=== PATIENT | female | born 1960 | race Caucasian/White ===

== ENCOUNTER 2020-03-12 09:23 | Outpatient (CLI) | payer OTHER, SELFPAY ==
--- NOTE | ~2020-03-12 | MM_ITS ---
EXAMINATION: MM screening mammo BI HISTORY: Screening mammogram TECHNIQUE: Craniocaudal and mediolateral oblique 3-D tomosynthesis images were obtained and synthetic 2-D images were generated. CAD analysis was submitted and interpreted. COMPARISON: 01/24/2019, 03/16/2015 bilateral digital screening mammogram examinations BREAST PARENCHYMAL COMPOSITION: There are scattered areas of fibroglandular density. FINDINGS: There is no evidence of suspicious mass, calcification, or architectural distortion to sugg est malignancy in either breast. There has been no suspicious interval change. IMPRESSION: 1. No mammographic evidence of malignancy. 2. Recommend routine screening mammography in one year. BI-RADS Category 1: Negative Reviewed, dictated and finalized at location A.
== END 2020-03-12 09:24 | disposition home or self-care (01) ==
PROVIDERS: PCP Internal Medicine; Visit Provider Student in an Organized Health Care Education/Training Program
DX: Z12.31 Encounter for screening mammogram for malignant neoplasm of breast (principal)
CPT/HCPCS: 77067

== ENCOUNTER → 2022-11-08 10:52 | Outpatient (CLI) | payer BC, SELFPAY ==
--- NOTE | ~2022-11-08 | DEXA_ITS ---
Bone Density Report Name: YULY GLASS Age: 61 Sex: Female Ethnicity: White Date of : 1960 Indication: postmenopausal; screening for osteoporosis; parental hip fracture; hysterectomy; Referring Provider: Hillary Nino Study: Bone densitometry was performed. Exam Date: November 08, 2022 Accession number: [id number] Bone Density: Region BMD T-score Z-score Classification AP Spine (L1-L4) 0.978 -0.6 0.9 Normal Femoral Neck (Left) 0.807 -0.4 1.0 Normal Total Hip (Left) 0.949 0.1 1.1 Normal Femoral Neck (Right) 0.845 0.0 1.3 Normal Total Hip (Right) 0.998 0.5 1.5 Normal Total Hip Mean 0.974 0.3 1.3 Normal World Health Organization criteria for BMD impression classify patients as: Normal (T-score at or above -1.0), Osteopenia (T-score between -1.0 and -2.5), or Osteoporosis (T-score at or below -2.5). 10-year Fracture Risk: FRAX not reported because: All T-scores for Spine Total, Hip Total, Femoral Neck at or above -1.0 Clinical Information Provided by Patient: Parent has had a hip fracture Has used the following medications: Calcium Has the following medical conditions: Hysterectomy Patient maximum height was 64.2 Menopause Age: 40 Drinks caffeinated beverages Onset of menses at age 10 Number of children 2 Impression: The patient has normal bone mass. The patient has risk factors, including: parental hip fracture. Discussion: BONE DENSITY IS ABOVE THE MINIMUM DESIRABLE LEVEL AT ALL SKELETAL SITES TESTED. This patient?s bone mineral density is above the minimum desirable level (T-score -1.0 or better) at all sites measured. The patient should follow a healthful lifestyle (good nutrition with adequate calcium and vitamin D, and appropriate weight-bearing exercise). Follow-Up: Consider repeating this study in 5 years or sooner if there is some new clinical indication. Reported by: [facility] on 11/08/2022 11:24:00 AM. Reviewed, dictated and finalized at location ACristian MIKE
--- NOTE | ~2022-11-08 | MM_ITS ---
EXAMINATION: MM screening [facility] BI w juanita HISTORY: Screening mammogram TECHNIQUE: Craniocaudal and mediolateral oblique 3-D tomosynthesis images were obtained and synthetic 2-D images were generated. CAD analysis was submitted and interpreted. COMPARISON: 03/12/2020, 01/24/2019, 03/16/2015 BREAST PARENCHYMAL COMPOSITION: There are scattered areas of fibroglandular density. FINDINGS: No suspicious mass, calcification, or architectural distortion are identified in either corey ast to suggest malignancy. There has been no suspicious interval change. IMPRESSION: 1. No mammographic evidence of malignancy. 2. Recommend routine screening mammography in one year. BI-RADS Category 1: Negative Reviewed, dictated and finalized at location A.
== END ==
PROVIDERS: PCP Family Medicine; Visit Provider Family Medicine
DX: Z12.31 Encounter for screening mammogram for malignant neoplasm of breast (principal); Z78.0 Asymptomatic menopausal state
CPT/HCPCS: 77063; 77067; 77080

== ENCOUNTER → 2022-12-16 09:54 | Outpatient (CLI) | payer BC, SELFPAY ==
--- NOTE | ~2022-12-16 | XR_ITS ---
Right Knee Technique: AP, lateral, and sunrise views were obtained. Clinical History: Pain Findings: No fracture or dislocation is seen. Osseous alignment is anatomic. There is mild patellar s purring. Soft tissues are unremarkable. No joint effusion is seen. Impression: Mild patellar spurring. Reviewed, dictated and finalized at location . Impression: Mild patellar spurring.
== END ==
PROVIDERS: PCP Family Medicine; Visit Provider Family Medicine
DX: M76.51 Patellar tendinitis, right knee (principal)
CPT/HCPCS: 73564

== ENCOUNTER 2023-11-07 08:44 | Outpatient (CLI) | payer BC, SELFPAY ==
[2023-11-13 14:34] VITALS: BMI 26.2
--- NOTE | 2023-11-13 14:34 | WPDHOMESLEEP ---
Sleep Study - Home Unattended Date of Study: 11/07/23 Ordering Provider: Ashly Crane DO Interpreting Provider: Ashly Crane DO Home Sleep Study Type: Watch PAT Height: 1.64 m Weight: 70.307 kg Body Mass Index: 26.2 Neck Circumference (inches): 12 [place]: 0 Reason for Sleep Study Insomnia Sleep History The patient is a 62-year-old female that had a sleep study ordered for evaluation of insomnia. The patient denies awakening from sleep short of breath. She denies awakening at night with heartburn, belching or cough. She frequently snores and is frequently loud enough that others complain. She denies waking up gasping for air throughout the night. She denies having breathing problems at night observed by herself or others. She denies sweating excessively at night. She denies having heart palpitations or irregular heartbeats during the night. She denies falling asleep during the day and while driving. He denies sleep paralysis and cataplexy. She occasionally has trouble at school or work due to sleepiness. She frequently experiences vivid dreamlike scenes upon awakening or falling asleep. She denies feeling afraid of going to sleep. She rarely has nightmares. She frequently remembers her dreams. She frequently has thoughts racing through her mind. She rarely feels sad or depressed. She frequently has anxiety. She occasionally notices parts of her body jerk. She rarely kicks during the night. She occasionally experiences crawling and aching feelings in her legs and occasionally has leg pain during the night. She occasionally grinds her teeth during sleep but never awakened with morning jaw pain. She denies being bothered by pain during the day and denies being awakened by pain during the night. She denies waking up feeling stiff in the morning. She denies waking with sore or achy muscles. She denies waking up with pain in the neck, spine and other joints. She goes to bed between 9:30-10 p.m. on weekdays and at 10:00 p.m. on the weekends. It takes her 30 minutes to fall asleep. She wakes up once throughout the night for unknown reasons. When she is unable to fall asleep, she will try to calm her brain and listen to various voices. it can take her 2 to 2-1/2 hours to fall back asleep. She wakes up at 5:30 a.m. on weekdays and 6:30 a.m. on the weekends. She typically gets 7-1/2 hours of sleep per night. She will stay in bed for 10-15 minutes after waking up in the morning. He currently lives with her . She denies consuming any caffeinated beverages within 2 hours of bedtime. She denies engaging in physical exercise before bedtime. She will occasionally read and watch television before falling asleep. She denies taking naps in the afternoon evening. She consumes 2-3 cups of caffeinated beverage per day. She consumes 1-2 alcoholic beverages per month. She denies tobacco and recreational drug use. [facility] Past Medical History Medical History Body mass index (bmi) 32.0-32.9, adult (01/08/19) Hypercholesterolemia Insomnia due to stress Post menopausal problems Surgical History Surgical History H/O: hysterectomy Hx of tonsillectomy Family History Family History Sibling Family history of obesity Family history of mental disorder Depression Family history of type 2 diabetes mellitus Father Hypertension Family history of type 2 diabetes mellitus Mother Patient's mother is in good health Social History Social History Smoking status: Never smoker Second hand tobacco smoke exposure: No Alcohol intake: current Substance use: never Substance use type: does not use Do You Feel Safe in your Home?: Yes Lack of Transportation: No Lack of Food: Never True
== END 2023-11-09 11:57 | disposition home or self-care (01) ==
LOC: ANHCSM 08:45
PROVIDERS: PCP Family Medicine; Visit Provider Family Medicine
DX: G47.00 Insomnia, unspecified (principal); F51.02 Adjustment insomnia; F39 Unspecified mood [affective] disorder
CPT/HCPCS: 95800

== ENCOUNTER 2024-02-16 15:29 | Outpatient (CLI) | payer BC, SELFPAY ==
--- NOTE | ~2024-02-16 | XR_ITS ---
XR knee RT min 4V 02/16/2024 15:48 Indication: Right knee pain Procedure: 4 views right knee Comparison: 12/16/2022 Findings: Mild osteoarthritis of the right knee. No fracture, subluxation or dislocation. No signific ant joint effusion. Impression: 1: Mild osteoarthritis of the right knee. Reviewed, dictated and finalized at location B. Impression: 1: Mild osteoarthritis of the right knee.
== END 2024-02-16 15:30 ==
LOC: GOSHIMG 15:30
PROVIDERS: PCP Family Medicine; Visit Provider Family Medicine
DX: M17.11 Unilateral primary osteoarthritis, right knee (principal)
CPT/HCPCS: 73564

== ENCOUNTER 2024-04-09 07:19 | Outpatient (CLI) | payer BC, SELFPAY ==
--- NOTE | ~2024-04-09 | MR_ITS ---
EXAMINATION: MR knee RT wo con DATE: 04/09/2024 07:58 INDICATION: Right knee pain TECHNIQUE: Magnetic resonance imaging (MRI) of the right knee was performed without intravenous contr ast. Sequences included coronal PD-weighted FSE, coronal PD-weighted FS FSE, sagittal T2-weighted FS E, sagittal PD-weighted FS FSE and axial PD weighted fat saturated FSE. COMPARISON: None. FINDINGS: Medial compartment: Medial meniscus is normal. Shallow chondral ulceration with mild partial-thickness cartilage loss and chondral surface regularity along the anterior to central weightbearing medial femoral condyle and a nterior third of the medial tibial plateau. Lateral compartment: Lateral meniscus is normal. Chondral thickness is relatively preserved with deep chondral fissure at the central aspect of the lateral tibial plateau. There is a 5 x 9 mm deep chondral defect at the zohreh ction of the anterior to central weightbearing lateral femoral condyle. No degenerative subchondral c hanges. Patellofemoral compartment: Deep chondral ulceration and fissuring at the patellar apical ridge and immediately adjacent medial a nd lateral patellar facets. Less severe partial thickness cartilage loss with deep fissuring extendin g more peripherally across the lateral patellar facet. There are associated scattered subarticular ed [place]-like signal changes. Deep chondral fissure with small central subchondral osteophyte at the cepha lad aspect of the trochlear groove. And at the inferolateral aspect of the medial trochlea where ther e is also some mild subarticular edema-like signal change. Severe partial thickness chondral fissurin g at the inferolateral aspect of the lateral trochlea. Ligaments and tendons: Anterior and posterior cruciate ligaments are normal. The medial collateral ligament and fibular amber ateral ligament complex are normal. The extensor mechanism is normal. The visualized medial and later al hamstring tendons as well as the iliotibial band are normal. Fluid: Small knee joint effusion. Multilobulated ganglion cyst with numerous small loculations together dinesh uring 2.5 x 1.1 x 1.5 cm which extends into some of the fibers at the femoral origin of the lateral h ead of the gastrocnemius. There is a small loose body within a small ganglion cyst within the fibers of the femoral origin of the medial head of the gastrocnemius. No intra-articular loose osteochondral bodies identified. Osseous/other: Bone marrow signal is normal aside from previous noted scattered degenerative subarticular edema-like signal changes. No fracture or pathologic marrow replacing process. IMPRESSION: 1. 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 Reviewed, dictated and finalized at location A. IMPRESSION: 1. 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
== END 2024-04-09 07:20 | disposition home or self-care (01) ==
PROVIDERS: PCP Family Medicine; Visit Provider Family Medicine
DX: M17.11 Unilateral primary osteoarthritis, right knee (principal); M22.41 Chondromalacia patellae, right knee
CPT/HCPCS: 73721

== ENCOUNTER 2025-04-18 10:43 | Outpatient (NON) | payer OTHER, SELFPAY ==
--- OUTSIDE RECORDS SUMMARY | 2025-04-18 11:03 | XMS_ITS | Clinical Summary ---
Author Organization [facility] Address [address] [place] [address] Care Team Providers Care Assembler Tractor Name Role Phone Daniel Erickson MD Primary Care Provider [phone] Allergies Active Allergy Reactions Criticality Noted Date Comments Meperidine Nausea only Low 02/10/2009 Medications clonazePAM (KlonoPIN) 0.5 mg tablet every 8 hours Active traZODone (DESYREL) 100 mg tablet trazodone 100 mg tablet Active Active Problems Problem Noted Date Diagnosed Date Anxiety 07/22/2019 Disorder of bursae of shoulder region 07/22/2019 Mucous cyst of finger 07/22/2019 Overview (07/22/2019): Added automatically from request for surgery [id number] Mastitis 02/10/2009 Overview (07/22/2019): Late December 2008, erythema right breast, periareolar, associated with malaise, resolved with Keflex. Surgical History Surgery Date Site/Laterality Comments HYSTERECTOMY Family History Medical History Relation Name Comments Diabetes Father Heart disease Father Hypertension Father Arthritis Mother Relation Name Status Comments Father Mother Social History Tobacco Use Types Packs/Day Years Used Date Smoking Tobacco: Never Smokeless Tobacco: Never Personal Safety Answer Date Recorded Getting School Help Needed Not on file 09/09 Comments Unknown Sex and Gender Information Value Date Recorded Sex Assigned at Not on file Legal Sex Female 5:00 PM RECORDS CLERK Gender Identity Not on file Sexual Orientation Not on file Obstetrics History Last Filed Vital Signs Vital Sign Reading Time Taken Comments Blood Pressure - - Pulse - - Temperature - - Respiratory Rate - - Oxygen Saturation - - Inhaled Oxygen Concentration - - Weight 70.3 kg (155 lb) 07/22/2019 8:56 AM RECORDS CLERK Height 162.6 cm (5' 4) 07/22/2019 8:56 AM RECORDS CLERK Body Mass Index 26.61 07/22/2019 8:56 AM RECORDS CLERK Plan of Treatment Not on file Insurance [facility] CHOICE [facility] H[facility]/PPO Address: [place] [id number] Care Teams Assembler Tractor Relationship Specialty Start Date End Date Daniel Erickson MD [address] [place] [id number] PCP - General Internal Medicine 07/22/19
[2025-04-18 13:17] LABS: Add Urine Microscopic? YES; Appearance Urine Clear (Clear); Glucose Urine UA Negative (Negative); Leukocyte Esterase Ur 2+ LEU/UL (Negative); Need Manual Microscopic Reviewed; Nitrate Urine Negative (Negative); Non Pathogenic Casts 0-2; Specific Grav Ur 1.007 (1.001-1.035)
== END 2025-04-18 10:44 | disposition home or self-care (01) ==
LOC: ANHGOSHLAB 10:43
PROVIDERS: PCP Family Medicine; Visit Provider Nurse Practitioner Family
DX: R82.90 Unspecified abnormal findings in urine (principal)
CPT/HCPCS: 81001; 87086

== ENCOUNTER 2025-05-08 01:13 | Day surgery (SDC) | payer OTHER, SELFPAY ==
[2025-04-30 14:25] VITALS: BMI 29.3
--- OUTSIDE RECORDS SUMMARY | 2025-05-08 01:16 | XMS_ITS | Clinical Summary ---
Author Organization [facility] Address [address] [place] [address] Phone Care Team Providers Care Metal Mockup Maker Name Role Phone Daniel Erickson MD Primary Care Provider Allergies Active Allergy Reactions Criticality Noted Date Comments Meperidine Unknown 02/10/2009 Medications ESCITALOPRAM OXALATE (LEXAPRO PO) Take by mouth. Ac tive estradioL (Yuvafem) 10 mcg tablet Insert one tablet vaginally every evening for 14 days, then insert one tablet twice weekly. 28 Tablet 2 Active traZODone (DESYREL) 100 mg tablet Take 1 Tablet (100 mg) by mouth 2 times daily. 180 Tablet 1 08/01/2022 6:19 PM SCHOLARSHIP COUNSELOR 2 Active clonazePAM (KlonoPIN) 0.5 mg Tablet Take 1 Tablet (0.5 mg) by mouth daily. 30 Tablet 08/30/2022 12:07 PM SCHOLARSHIP COUNSELOR 3 Active clonazePAM (KlonoPIN) 0.5 mg Tablet Take 1 Tablet (0.5 mg) by mouth 1 time daily as needed for insomnia. 30 Tablet 2 3 Active clonazePAM (KlonoPIN) 0.5 mg Tablet Take 1 Tablet (0.5 mg) by mouth 1 time daily as needed for insomnia. 30 Tablet 2 12/02/2022 6:10 PM CDT 3 Active clonazePAM (KlonoPIN) 0.5 mg Tablet TAKE 1 TABLET BY MOUTH DAILY NEEDED FOR INSOMNIA 30 Tablet 2 04/01/2023 12:01 PM CDT 3 Active sertraline (ZOLOFT) 25 mg tablet Take one tablet (25 mg) orally daily 7 Tablet 10/13/2023 1:23 PM CDT 4 Active sertraline (ZOLOFT) 50 mg tablet Take one tablet (50 mg) orally daily 90 Tablet 10/13/2023 1:23 PM CDT 4 Active eszopiclone (LUNESTA) 2 mg Tablet Take 1 Tablet (2 mg) by mouth daily at bedtime on night of sleep study. 1 Tablet 12/19/2023 7:17 PM CDT 4 Active meloxicam (MOBIC) 15 mg tablet Take 1 Tablet (15 mg) by mouth daily. 30 Tablet 2 06/25/2024 8:25 AM SCHOLARSHIP COUNSELOR 4 Active clonazePAM (KlonoPIN) 0.5 mg Tablet Take 0.5 Tablets (0.25 mg) by mouth 1 time daily as needed. 30 Tablet 1 08/20/2024 5:44 PM SCHOLARSHIP COUNSELOR 5 Active methylPREDNISol one (MEDROL DOSPACK) 4 mg Tablets, Dose Pack TAKE DIRECTED ON PACKAGE 21 Each 12/17/2024 4:40 PM CDT 5 Active triamcinolone acetonide (KENALOG) 0.5 % Cream APPLY TO THE AFFECTED AREA DAILY NEEDED FOR DERMATITIS 30 Gram 3 12/26/2024 2:48 PM CDT 5 Active triamcinolone acetonide (KENALOG) 0.5 % Cream APPLY TOPICALLY DAILY DIRECTED. 30 Gram 5 Active traZODone (DESYREL) 100 mg tablet Take 2 Tablets (200 mg) by mouth daily at bedtime. 180 Tablet 1 03/27/2025 5:42 PM CDT 5 Active simvastatin (ZOCOR) 20 mg tablet Take 1 Tablet (20 mg) by mouth daily. 90 Tablet 1 03/31/2025 6:02 PM CDT 5 Active sertraline (ZOLOFT) 50 mg tablet Take 1 Tablet (50 mg) by mouth daily. 90 Tablet 1 03/31/2025 6:02 PM CDT 5 Active Cholecalciferol , Vitamin D3, 50 mcg (2,000 unit) Capsule Take 50 mcg ( 1 capsule ) by mouth daily. 90 Capsule 1 04/18/2025 5:29 PM CDT Active Active Problems Problem Noted Date Diagnosed Date Mastitis 02/10/2009 Overview (02/10/2009): Late December 2008, erythema right breast, periareolar, associated with malaise, resolved with Keflex. Anxiety Encounters Date Type Department Care Team Description 04/23/2025 External Device Data ST[facility] ABSTRACTION Provider, Abstract 04/22/2025 External Device Data [facility] ABSTRACTION Provider, Abstract 04/16/2025 External Device Data [facility] ABSTRACTION Provider, Abstract 04/15/2025 External Device Data [facility] ABSTRACTION Provider, Abstract 03/11/2025 External Device Data [facility] ABSTRACTION Provider, Abstract 03/04/2025 External Device Data [facility] ABSTRACTION Provider, Abstract from Last 3 Months Family History Medical History Relation Name Comments Diabetes Father Heart Disease Father Cancer Maternal Grandmother lymphom a Breast Cancer Neg Hx Ovarian Cancer Neg Hx Relation Name Status Comments Father Maternal Grandmother Social History Tobacco Use Types Packs/Day Years Used Date Smoking Tobacco: Never Alcohol Use Standard Drinks/Week Comments Yes 0 (1 standard drink = 0.6 oz pur e alcohol) moderate Comments No Sex and Gender Information Value Date Recorded Sex Assigned at Not on file Legal Sex Female 5:46 AM SCHOLARSHIP COUNSELOR Gender Identity Not on file Sexual Orientation Not on file Occupation Industry Job Start Date Job End Date Not on file Not on file Not on file Not on file Last Filed Vital Signs Vital Sign Reading Time Taken Comments Blood Pressure 128/90 02/10/2009 4:14 PM CDT Pulse - - Temperature - - Respiratory Rate - - Oxygen Saturation - - Inhaled Oxygen Concentration - - Weight 90.7 kg (200 lb) 02/10/2009 4:14 PM CDT Height 162.6 cm (5' 4) 02/10/2009 4:14 PM CDT Body Mass Index 34.33 02/10/2009 4:14 PM CDT Plan of Treatment Health Maintenance Due Date Last Done Comments DTAP/TDAP/TD VACCINES (1 - Tdap) 12/21/1979 HPV/Cotest (21-29) 1981 CERVICAL CANCER SCREENING 1990 HPV/Cotest (30-65) 1990 PAP SMEAR 1990 COLORECTAL SCREENING 2005 Colorectal Cancer Screening 2005 FIT-DNA Q 3 years 2005 FIT/FOBT Q 1 year 2005 Flex Sig/CT Colonography Q 5 years 2005 ZOSTER VACCINE (1 of 2) 2010 BREAST CANCER SCREENING 05/02/2012 05/02/20 11, 02/23/2009, 03/17/2007, Additional history exists INFLUENZA VACCINE (#1) 2025 RSV VACCINE (60+ or ) (1 - 1-dose 75+ series) 12/21/2035 Procedures Procedure Name Priority Date/Time Associated Diagnosis Comments MAMMO SCREEN BILAT W OR WO CAD Routine 05/02/2011 9:20 AM SCHOLARSHIP COUNSELOR Other screening mammogram from Last 3 Months or Most Recently Relevant to Health Maintenance Results * MAMMO DIGITAL SCREEN BILAT (05/02/2011 9:20 AM SCHOLARSHIP COUNSELOR) Anatomical Region Laterality Modality Breast Bilateral Mammography 05/02/2011 9:02 AM SCHOLARSHIP COUNSELOR Narrative 05/04/2011 8:22 AM SCHOLARSHIP COUNSELOR DIGITAL SCREENING MAMMOGRAM WITH COMPUTER-ASSISTED DIAGNOSIS 05/02/11 HISTORY: Annual screening study. FINDINGS: The breasts were imaged with digital mammographic technique. There are scattered fibroglandular densities. No significant mass, malignant calcification or architectural distortion is noted. The CAD system does not highlight any suspicious areas. SUMMARY: No mammographic evidence of malignancy. RECOMMENDATIONS: Bilateral yearly screening mammogram is recommended. BI-RADS 1 - Negative Procedure Note Za Mckinney MD - 05/04/2011 DIGITAL SCREENING MAMMOGRAM WITH COMPUTER-ASSISTED DIAGNOSIS 05/02/11 HISTORY: Annual screening study. FINDINGS: The breasts were imaged with digital mammographic technique. There are scattered fibroglandular densities. No significant mass, malignant calcification or architectural distortion is noted. The CAD system does not highlight any suspicious areas. SUMMARY: No mammographic evidence of malignancy. RECOMMENDATIONS: Bilateral yearly screening mammogram is recommended. BI-RADS 1 - Negative [facility] MD MAMMO ORDERABLES Final R esult from Last 3 Months or Most Recently Relevant to Health Maintenance Insurance [address] BLUE ACCESS/TRUE BLUE PPO RX [employer] (INTERNAL) [facility] RX [employer] (INTERNAL) [facility] RX [employer] RX Member Subscriber Plan / Payer (Ef fective 2024-Present) Name:Yakelin Hector Relation to Subscriber:Self Name:Yakelin Hector Subscriber ID:Not on file Payer ID:Not on file Group ID:[id number] Type:RX Commercial Address: [address] Care Teams Metal Mockup Maker Relationship Specialty Start Date End Date Daniel Erickson MD [address] [place] [phone] PCP - General Internal Medicine 03/30/11
--- OUTSIDE RECORDS SUMMARY | 2025-05-08 01:16 | XMS_ITS | Clinical Summary ---
Author Organization [facility] Address [address] [place] [address] Care Team Providers Care Dining Room Captain Name Role Phone Daniel Erickson MD Primary Care Provider [phone] Allergies Active Allergy Reactions Criticality Noted Date Comments Meperidine Nausea only Low 02/10/2009 Medications clonazePAM (KlonoPIN) 0.5 mg tablet every 8 hours Active traZODone (DESYREL) 100 mg tablet trazodone 100 mg tablet Active Active Problems Problem Noted Date Diagnosed Date Anxiety 07/22/2019 Disorder of bursae of shoulder region 07/22/2019 Mucous cyst of finger 07/22/2019 Overview (07/22/2019): Added automatically from request for surgery [id number] Mastitis 02/10/2009 Overview (07/22/2019): Late December 2008, [...] on file Legal Sex Female 5:00 PM PIZZA MAKER Gender Identity Not on file Sexual Orientation Not on file Last Filed Vital Signs Vital Sign Reading Time Taken Comments Blood Pressure - - Pulse - - Temperature - - Respiratory Rate - - Oxygen Saturation - - Inhaled Oxygen Concentration - - Weight 70.3 kg (155 lb) 07/22/2019 8:56 AM PIZZA MAKER Height 162.6 cm (5' 4) 07/22/2019 8:56 AM PIZZA MAKER Body Mass Index 26.61 07/22/2019 8:56 AM PIZZA MAKER Plan of Treatment Not on file Insurance [facility] CHOICE PLUS [facility] H[facility]/PPO [place] [address] Care Teams Dining Room Captain Relationship Specialty Start Date End Date Daniel Erickson MD [address] [place] [id number] PCP - General Internal Medicine 07/22/19
[2025-05-08 06:25] VITALS: BP 117/76; PULSE 72; RESP 18; TEMP 36.6; O2SAT 97; BMI 29.2
[2025-05-08] MEDS: LACTATED RINGERS 1,000 ML 150 ML IV CONT (06:36)
--- NOTE | 2025-05-08 06:45 | WPDANESEPPF ---
Anes - Initial Pre Proc Eval Procedure: Operation Date: 05/08/25 07:30 Proposed Procedures p Screening Colonoscopy - Dieudonne Shields MD Date/Time: 05/08/25 06:45 Surgeon: Dieudonne Shields MD Pre Op Diagnosis: Encounter for screening for malignant neoplasm of Patient Data Age: 64 Gender: F Height: 1.65 m Weight: 79.8 kg Last Vital Signs Temp 36.6 C 05/08/25 06:25 Pulse 72 05/08/25 06:25 Resp 18 05/08/25 06:25 BP 117/76 05/08/25 06:25 Pulse Ox 97 05/08/25 06:25 O2 Del Method Room Air 05/08/25 06:25 Allergies Allergy/AdvReac Type Severity Reaction Status Date / Time propoxyphene Allergy Unknown Unknown Verified 05/08/25 06:23 codeine AdvReac Intermediate NAUSEA Verified 05/08/25 06:23 VOMITING Home Medications ?Medication ?Instructions ?Recorded ?Confirmed ?Type calcium carbonate 200 mg PO DAILY 04/18/25 05/08/25 History cholecalciferol (vitamin D3) 50 50 mcg PO DAILY #90 caps 04/18/25 05/08/25 Rx mcg (2,000 unit) capsule magnesium 200 mg tablet 200 mg PO DAILY 04/18/25 05/08/25 History multivitamin-ferrous 1 tablet PO DAILY 04/18/25 05/08/25 History fumarate-folic acid 18 mg-400 mcg tablet (Centrum Women) potassium chloride 15 mEq 15 meq PO DAILY 04/18/25 05/08/25 History tablet,extended release sertraline 50 mg tablet 50 mg PO QHS 04/18/25 05/08/25 History simvastatin 20 mg tablet 20 mg PO QHS 04/18/25 05/08/25 History trazodone 100 mg tablet 200 mg PO QHS 04/18/25 05/08/25 History Patient hx anesthesia problems: none Family hx anesthesia problems: none Results Review: All pre-operative results and documents have been reviewed as part of the pre-operative evaluation. [facility] Past Medical History Medical History (Updated 05/08/25 @ 06:45 by Js Cuevas MD) Tubal ectopic Arthritis Anxiety Allergies Hypercholesterolemia Insomnia due to stress Post menopausal problems Surgical History Surgical History History of sinus surgery Hx of tonsillectomy H/O: hysterectomy Family History Family History Sibling Family history of obesity Family history of mental disorder Depression Family history of type 2 diabetes mellitus Father Hypertension Family history of type 2 diabetes mellitus Depression Heart disease Mother Depression Thyroid disorder Grandparent Hypertension Cancer Social History Social History Smoking status: Never smoker Second hand tobacco smoke exposure: No Alcohol intake: current Substance use: never Substance use type: does not use Current Housing: Decline to Answer Concerned About Future Housing: Decline to Answer Difficulty Paying Gas/Electric Bills: Decline to Answer Difficulty Paying for Meds: Decline to Answer Currently Unemployed: Decline to Answer Education: Decline to Answer Difficulty w/ Childcare or Family Care: Decline to Answer Living arrangements: with family Occupation/Education: occupation Gender identity (if verbalized by the patient): Female Sexual Orientation (if Verbalized by the Patient): Straight or Heterosexual Spiritual care concerns: No Agree to blood products: Yes Anes - Eval Final PreProcedure Day of Procedure 05/08/25 06:45 Patient weight: overweight Heart: regular rate and rhythm Lungs: clear to auscultation Airway: Mallampati scale class II Neurological: alert and oriented Last oral intake: >/= 8 hours ASA classification: II Emergent: no Anesthetic plan: proceed Anesthesia type and monitoring: general GIVS and standard monitoring Results Review: All pre-operative results and documents have been reviewed as part of the pre-operative evaluation. Informed Consent: The patient's anesthetic plan and its attendant risks and benefits were discussed with the patient/family/POA. Questions were solicited and answers provided to the satisfaction of the patient/family/POA.
--- NOTE | 2025-05-08 07:25 | PM.HPGS ---
History of Present Illness History of Present Illness Consent: Risks, benefits, and alternatives have been discussed and questions answered. Patient agrees to proceed with procedure. 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 Post menopausal problems Surgical History Surgical History History of sinus surgery Hx of tonsillectomy H/O: hysterectomy Family History Family History Sibling Family history of obesity Family history of mental disorder Depression Family history of type 2 diabetes mellitus Father Hypertension Family history of type 2 diabetes mellitus Depression Heart disease Mother Depression Thyroid disorder Grandparent Hypertension Cancer Social History Social History Smoking status: Never smoker Second hand tobacco smoke exposure: No Alcohol intake: current Substance use: never Substance use type: does not use Current Housing: Decline to Answer Concerned About Future Housing: Decline to Answer Difficulty Paying Gas/Electric Bills: Decline to Answer Difficulty Paying for Meds: Decline to Answer Currently Unemployed: Decline to Answer Education: Decline to Answer Difficulty w/ Childcare or Family Care: Decline to Answer Living arrangements: with family Occupation/Education: occupation Gender identity (if verbalized by the patient): Female Sexual Orientation (if Verbalized by the Patient): Straight or Heterosexual Spiritual care concerns: No Agree to blood products: Yes Meds Home Medications and Allergies Home Medications ?Medication ?Instructions ?Recorded ?Confirmed ?Type calcium carbonate 200 mg PO DAILY 04/18/25 05/08/25 History cholecalciferol (vitamin D3) 50 50 mcg PO DAILY #90 caps 04/18/25 05/08/25 Rx mcg (2,000 unit) capsule magnesium 200 mg tablet 200 mg PO DAILY 04/18/25 05/08/25 History multivitamin-ferrous 1 tablet PO DAILY 04/18/25 05/08/25 History fumarate-folic acid 18 mg-400 mcg tablet (Centrum Women) potassium chloride 15 mEq 15 meq PO DAILY 04/18/25 05/08/25 History tablet,extended release sertraline 50 mg tablet 50 mg PO QHS 04/18/25 05/08/25 History simvastatin 20 mg tablet 20 mg PO QHS 04/18/25 05/08/25 History trazodone 100 mg tablet 200 mg PO QHS 04/18/25 05/08/25 History Allergies Allergy/AdvReac Type Severity Reaction Status Date / Time propoxyphene Allergy Unknown Unknown Verified 05/08/25 06:23 codeine AdvReac Intermediate NAUSEA Verified 05/08/25 06:23 VOMITING Vital Signs Vital Signs - 24 hr 05/08/25 06:25 Temperature 97.9 F Pulse Rate 72 Respiratory Rate 18 Blood Pressure 117/76 Pulse Oximetry 97 Oxygen Delivery Room Air Exam Const: General: comfortable and no acute distress HENMT: Face/Nose/Sinus: Normal nares present Eyes: General: appearance normal, both eyes and all related structures Neck: Neck: no JVD Resp: Auscultation: clear to auscultation bilaterally Cardio: Rate: regular rate Rhythm: regular rhythm GI: Inspection: non-distended GI Palp: Yes Soft to palpation Skin: General skin exam: normal color Extrem: General: normal to inspection Psych: Mental Status: mental status grossly normal Assessment and Plan Assessment and plan (1) Screening for colon cancer: Code(s): Z12.11 - Encounter for screening for malignant neoplasm of colon Status: Acute Assessment and Plan: colonoscopy
[2025-05-08 07:39] VITALS: BP 89/42; PULSE 60; RESP 26; O2SAT 96
[2025-05-08 07:49] VITALS: BP 89/61; PULSE 63; RESP 20; O2SAT 97
[2025-05-08 07:59] VITALS: BP 104/67; PULSE 60; RESP 22; O2SAT 98
== END 2025-05-08 08:27 | disposition home or self-care (01) ==
PROVIDERS: PCP Family Medicine; Referring Provider Family Medicine; Visit Provider Internal Medicine Gastroenterology
PROC: 0DJD8ZZ Inspection of Lower Intestinal Tract, Via Natural or Artificial Opening Endoscopic (ICD-10-PCS; CPT 45378; principal; 2025-05-08 07:30)
DX: Z12.11 Encounter for screening for malignant neoplasm of colon (principal); K64.8 Other hemorrhoids; K57.30 Diverticulosis of large intestine without perforation or abscess without bleeding; E78.00 Pure hypercholesterolemia, unspecified; F41.9 Anxiety disorder, unspecified; F51.02 Adjustment insomnia; M19.90 Unspecified osteoarthritis, unspecified site; Z98.890 Other specified postprocedural states; Z80.9 Family history of malignant neoplasm, unspecified; Z82.49 Family history of ischemic heart disease and other diseases of the circulatory system
CPT/HCPCS: 45378; J2003; J2704; J7120